=== PATIENT | male | born 1950 | race Caucasian/White ===

== ENCOUNTER → 2022-01-31 | Outpatient (CLI) | payer MEDICARE, OTHER ==
[2022-01-31 11:08] LABS: CHOL/HDL RATIO 3.3; Cholesterol 186 mg/dL (50-200); HDL Cholesterol 57 mg/dL (>39); Low Density Lipoprotein Chol 112 mg/dL (0-110); Triglycerides 83 mg/dL (30-160); Very Low Density Lipoprot Chol 16 mg/dL (6-32)
[2022-01-31 11:45] LABS: Creatinine, Urine Random 39.3 mg/dL (27.00-270.00)
[2022-01-31 11:48] LABS: Microalb/Creat Ratio UR, Rand 35.878 mg/g (0.000-30.000); Microalbumin, Random Urine 14.1 mg/L (0.000-20.000)
== END | disposition home or self-care (01) ==
LOC: LAB SHORT 09:19
PROVIDERS: Family Medicine
DX: Z13.9 Encounter for screening, unspecified (principal); R73.01 Impaired fasting glucose; I10 Essential (primary) hypertension
CPT/HCPCS: 36415; 80061; 82043; 82570; 83036